=== PATIENT | female | born 1960 | race Caucasian/White ===

== ENCOUNTER 2025-05-23 20:47 | Emergency (ER) | payer OTHER, MEDICARE, SELFPAY ==
[2025-05-23 20:51] VITALS: BP 143/81
[2025-05-23 21:19] VITALS: BMI 33.8
[2025-05-23 21:23] VITALS: BP 120/78
[2025-05-23] MEDS: DECADRON 10 MG IV (21:28)
[2025-05-23] MEDS: PEPCID 20 MG IV (21:28)
[2025-05-23 22:00] VITALS: BP 107/71
[2025-05-23 23:07] VITALS: BP 124/74
--- NOTE | 2025-05-23 23:36 | ED.GENMED ---
History of Present Illness
General
Chief Complaint: Allergic Reaction
Time Seen by Provider: 05/23/25 21:07
History of Present Illness
History of Present Illness:
65-year-old female without significant past medical history presenting to the ER for concern of allergic reaction. A few hours prior to arrival, patient was stung by multiple bees. She reached into a box in her garage and subsequently was attacked
by bees. She then broke out into diffuse hives with itching and lip numbness. Denies any prior allergies. Denies any respiratory symptoms. Denies GI symptoms. Denies any feeling of throat closure. Denies additional acute medical complaints
Phy Exam
Physical Exam
Physical Exam:
General: Well-appearing, no clinical signs of dehydration, nontoxic and in no acute distress
HEENT: protecting airway, no oropharyngeal swelling
Neck: appears supple
CV: Normal heart rate, regular rhythm
Resp: No accessory muscle use, no increased work of breathing, lungs clear to auscultation bilaterally
Abd: No distention
Extremities: No deformities, no swelling
Neuro: alert, no focal neurologic deficit
: deferred
Rectal: deferred
Psych: Normal affect
Skin: Diffuse urticaria to extremities, back, chest
Course
Orders/Labs/Results
Orders:
Orders
05/23/25 21:19
Dexamethasone Sod Phosphate [Decadron] 10 mg IV NOW STA
Famotidine [Pepcid] 20 mg IV NOW STA
Vital Signs
Initial and Last Documented VS:
Initial Vital Signs
Temp Pulse Resp BP Pulse Ox
98.1 F 145 24 143/81 95
05/23/25 20:51 05/23/25 20:51 05/23/25 20:51 05/23/25 20:51 05/23/25 20:51
Last Documented Vital Signs
Temp Pulse Resp BP Pulse Ox
98.1 F 102 20 107/71 96
05/23/25 20:51 05/23/25 23:00 05/23/25 23:00 05/23/25 22:00 05/23/25 23:00
MDM/Problems Addressed
MDM/Problems Addressed:
65-year-old female presenting after allergic reaction from multiple bee stings. Vital signs significant for tachycardia.
On exam patient is resting comfortably, no acute distress, diffuse pruritus and itching with diffuse urticaria. Symptoms consistent with acute allergic reaction. However no concerning features for anaphylaxis. No present respiratory or systemic
symptoms. Given diffuse nature of hives, will start on steroids. Will reassess
23:30 - On reassessment, patient is improving, heart rate improved. Feel stable for discharge. Will start patient on steroid taper. EpiPen prescribed and patient educated on when to use. Return precautions discussed and patient verbalized
understanding
*Pulse Oximetry
SaO2: 96
Oxygen Mode of Delivery: Room air
Patient hypoxic: no
*Critical Care Note
Total Time (30-74mins, 75-104mins- exclusive of procedures): Not Applicable
ED Attending Note
-
Portions of this chart may have been created with voice recognition software.� Occasional wrong word or��sound alike� substitutions may have occurred due to the inherent limitations of voice recognition software.
Discharge Plan
Departure
Patient Disposition: Home (Routine Discharge)
Date of Disposition: 05/23/25
Time of Disposition: 23:40
Patient with high blood pressure during this ER visit?: No
Condition: Good
Discharge Problem:
Allergic reaction, Bee sting allergy
Instructions: Hives (DC), Allergic reaction - ED discharge instructions
Prescriptions:
New
prednisone 10 mg Tablet
See Rx Instructions .ROUTE .COMPLEX Qty: 30 0RF
Rx Instructions:
Take By Mouth:
40 mg daily x3 days, 30 mg daily x3 days,
20 mg daily x3 days, 10 mg daily x3 days.
epinephrine [EpiPen 2-Guille] 0.3 mg/0.3 mL auto-injector
0.3 mg IM ONCE Qty: 2 0RF
Referrals:
Mirian Noel DO [Family Provider, Family Practice]
Activity Restrictions/Additional Instructions:
You were seen in the emergency department for allergic reaction
You were given steroids with improvement. You are prescribed steroids and an EpiPen.
Please follow-up closely with your primary care physician.
Return to the emergency department for any worsening of your symptoms, or any development of chest pain, difficulty breathing, abdominal pain with persistent vomiting and inability to tolerate food or liquid by mouth (concern for dehydration),
weakness, headache or confusion, fever greater than 100.4, or any additional symptoms that are concerning to you.
Thank you for choosing [facility].
Interventions
Interventions:
*Risk Screen - Suicide Last Done: 05/23/25 20:47
*General Assessment Last Done: 05/23/25 20:54
*Neglect/Abuse Screening Last Done: 05/23/25 20:54
*ED COVID-19 Vaccine History Last Done: 05/23/25 20:54
ED- Cardiac Assessment Last Done: 05/23/25 21:19
ED- Pulmonary Assessment Last Done: 05/23/25 21:19
ED-Skin Assessment Last Done: 05/23/25 21:19
Discharge Date and Time
Print Language: LAO
[2025-05-24] VITALS: BP 120/66
== END 2025-05-24 00:12 | disposition home or self-care (01) ==
LOC: EMR 20:47
PROVIDERS: EMERGENCY PHYSICIAN Student in an Organized Health Care Education/Training Program; FAMILY PHYSICIAN Family Medicine
DX: L50.0 Allergic urticaria (principal); T63.441A Toxic effect of venom of bees, accidental (unintentional), initial encounter
CPT/HCPCS: 99284; 96374; 96375